=== PATIENT | female | born 1940 | race Caucasian/White ===

== ENCOUNTER 2024-02-19 21:28 | Emergency (ER) | payer OTHER ==
[~2024-02-19] VITALS: Ht 165.1 cm; Wt 83.9 kg
[2024-02-19 22:42] LABS: BASOPHILS # (AUTO) 0.1 K/UL (0.0-0.2); BASOPHILS % (AUTO) 0.4 % (0.0-2.0); DIFFERENTIAL COMMENT 0; EOSINOPHILS # (AUTO) 0.2 K/uL (0.0-0.7); EOSINOPHILS % (AUTO) 1.8 % (0.0-7.0); HEMOGLOBIN 10.4 g/dL (10.9-14.3); LYMPHOCYTES # (AUTO) 0.4 K/uL (0.8-4.8); LYMPHOCYTES % (AUTO) 2.9 % (20.5-51.5); MEAN CORPUSCULAR HEMOGLOBIN 25.6 uug (24.7-32.8); MEAN CORPUSCULAR HGB CONC 32 g/dL (32.3-35.6); MEAN CORPUSCULAR VOLUME 81.2 fL (75.5-95.3); MONOCYTES # (AUTO) 0.3 K/uL (0.1-1.30); MONOCYTES % (AUTO) 2.3 % (0.0-11.0); NEUTROPHILS # (AUTO) 11.8 K/uL (1.8-8.9); NEUTROPHILS % (AUTO) 92.6 % (38.5-71.5); PLATELET COUNT (AUTO) 194 K/uL (179-408); RED BLOOD CELL COUNT(AUTO) 4.06 MIL/uL (3.63-4.92); RED CELL DISTRIBUTION WIDTH 18.2 % (12.3-17.7); WHITE BLOOD COUNT (AUTO) 12.7 K/uL (3.8-11.8)
[2024-02-19 23:11] LABS: CALCIUM 9.5 mg/dL (8.5-10.1); POTASSIUM 4.3 mmol/L (3.5-5.1)
[2024-02-19 23:19] LABS: ABG BASE EXCESS -5.6 mmol/L (-2.0-2.0); ABG HCO3 16.4 mmol/L (22.0-26.0); ABG PH 7.471 (7.340-7.440); ABG PO2 66.8 mmHg (75.0-100.0); ABG SITE RIGHT RADIAL; ABG TOTAL HEMOGLOBIN 11.5 G/dL (12.0-16.0); AaDO2 94.8 mmHg; MetHb 0.4 % (0.0-1.5); O2Hb 92.7 % (94.0-97.0)
[2024-02-19] MEDS ORDERED: ALBUTEROL SULFATE 2.5 MG/3 ML NEBU ONE (23:23)
[2024-02-19 23:24] LABS: ALBUMIN 3.1 g/dL (3.4-5.0); BILIRUBIN,TOTAL 0.7 mg/dL (0.2-1.0)
[2024-02-19 23:25] VITALS: O2SAT 94
[2024-02-19] MEDS: ALBUTEROL SULFATE 2.5 MG/3 ML NEBU NEB ONE (23:25)
[2024-02-19 23:34] VITALS: O2SAT 94; O2SAT 97
[2024-02-20] MEDS ORDERED: methylPREDNISolone SOD SUCC 125 MG/2 ML VIAL ONE (00:43)
[2024-02-20] MEDS: methylPREDNISolone SOD SUCC 125 MG/2 ML VIAL IV ONE (00:47)
[2024-02-20] MEDS ORDERED: FUROSEMIDE 40 MG/4 ML VIAL ONE (01:21)
[2024-02-20] MEDS: FUROSEMIDE 40 MG/4 ML VIAL IV ONE (01:28)
[2024-02-20 03:04] VITALS: O2SAT 97
== END 2024-02-20 03:40 | disposition short-term general hospital (02) ==
LOC: ER 21:34
DX: I50.9 Heart failure, unspecified (principal); R06.02 Shortness of breath; J44.9 Chronic obstructive pulmonary disease, unspecified; Z86.718 Personal history of other venous thrombosis and embolism; Z85.118 Personal history of other malignant neoplasm of bronchus and lung; Z90.2 Acquired absence of lung [part of]
CPT/HCPCS: 36415; 36600; 71045; 82803; 83605; 84484; 85025; 85610; A4606; A4663; J1940; J2919